=== PATIENT | female | born 1955 | race Caucasian/White ===

== ENCOUNTER → 2024-01-16 | Day surgery (SDC) | payer MEDICARE, OTHER ==
[~2024-01-16] MED LIST: Propofol 200 MG/20 ML SDV ONE
[2024-01-16] MEDS: Lactated Ringers 1,000 ML IV SCH (09:58)
== END ==
LOC: VM.SDS 09:31
PROVIDERS: ATTEND Family Medicine
DX: Z12.11 Encounter for screening for malignant neoplasm of colon (principal); Q43.8 Other specified congenital malformations of intestine; R19.5 Other fecal abnormalities; I10 Essential (primary) hypertension; L40.50 Arthropathic psoriasis, unspecified; F41.8 Other specified anxiety disorders; Z79.899 Other long term (current) drug therapy
CPT/HCPCS: J2704; J7120